=== PATIENT | male | born 1955 | race Caucasian/White ===

== ENCOUNTER 2020-07-31 16:12 | Inpatient (IN) ==
[2020-07-31] MEDS ORDERED: DOPamine 800 MG/250 ML PREMIX IV ONE (16:55)
[2020-07-31] MEDS ORDERED: methylPREDNISolone SOD SUC 125 MG/2 ML VIAL ONE (16:56)
[2020-07-31] MEDS ORDERED: DOPamine 800 MG/250 ML PREMIX IV SCH (17:00)
[2020-07-31] MEDS ORDERED: methylPREDNISolone SOD SUC 125 MG/2 ML VIAL IV STA (17:00)
[2020-07-31 17:06] LABS: Basophils # 0.1 10*3/uL (0.0-0.2); Basophils % 0.6 % (0.0-0.8); Eosinophils # 0.2 10*3/uL (0.0-0.87); Eosinophils % 1.8 % (0.00-10.9); Hematocrit 35.2 VOL% (42.0-52.0); Hemoglobin 10.8 GM/DL (14.0-18.0); Immature Granulocytes Absolute 0.18 #; Lymphocytes # 1.3 10*3/uL (1.4-4.0); Lymphocytes % 14.1 % (21.2-54.2); Mean Corpuscular HGB Conc 30.7 GM/DL (32-36); Mean Corpuscular Volume 108.6 FL (87-102); Mean Platelet Volume 10.6 FL (9.6-12.0); Monocytes % 6.5 % (1.7-12.7); Platelet Count 158 T/CUMM (130-400); Red Blood Count 3.24 MC/CUMM (3.8-5.5); White Blood Count 9.1 T/CUMM (4-12)
[2020-07-31 17:12] LABS: INR 1.2; PT Patient Result 12.7 SECS (9.8-11.9)
[2020-07-31 17:22] LABS: Albumin 2.8 G/DL (3.4-5.0); Bilirubin,Total 0.6 MG/DL (0.2-1.0); Calcium 7.7 MG/DL (8.5-10.1); Osmolality,Calculated 294.5 MOS/KG (273-304); Total Protein 6.3 G/DL (6.4-8.3)
[2020-07-31] MEDS: SODIUM CHLORIDE 0.9% 1,000 ML IV SCH ×3 (17:22→21:08)
[2020-07-31] MEDS ORDERED: SODIUM CHLORIDE 0.9% 500 ML IV STA (17:27)
[2020-07-31] MEDS ORDERED: LEVOFLOXACIN INJ 500 MG in PREMIX 1 EACH IV STA (18:04)
[2020-07-31] MEDS ORDERED: CEFEPIME 1,000 MG in SODIUM CHLORIDE 0.9% 100 ML IV STA (18:04)
[2020-07-31 18:57] LABS: Bilirubin,Urine Negative (Negative); Blood, Urine Negative (Negative); Glucose,Urine (UA) Negative (Negative); Hyaline Casts,Urine 4 /LPF (0-3); Ketones,Urine Negative (Negative); Mucus,Urine Occasional /LPF (Occasional); Nitrite,Urine Negative (Negative); Protein,Urine Negative; RBC,Urine 1 /HPF (0-4); Urine Appearance Slightly Hazy (Clear); Urine Color Yellow (Yellow); Urine Specific Gravity 1.013 (1.001-1.035); WBC,Urine <1 /HPF (0-6)
[2020-07-31] MEDS ORDERED: ACETAMINOPHEN 325 MG TABLET PO PRN (19:29)
[2020-07-31] MEDS ORDERED: GLUCAGON 1 MG VIAL IM PRN (19:36)
[2020-07-31] MEDS ORDERED: DEXTROSE 50% 25 GM/50 ML VIAL IV PRN (19:36)
[2020-07-31] MEDS ORDERED: PNEUMOCOCCAL VACCINE (13 VALENT) 0.5 ML SYRINGE IM ONE (20:48)
[2020-07-31] MEDS: LACTATED RINGERS 1,000 ML IV SCH (20:52)
[2020-07-31] MEDS: ALBUTEROL 2.5 MG/3 ML NEB RESP TX PRN (21:12)
[2020-07-31] MEDS: ENOXAPARIN 30 MG/0.3 ML SYRINGE SUBCUT SCH (21:15)
[2020-07-31] MEDS: INSULIN LISPRO 100 UNIT/ML SUBCUT SCH (21:15)
[2020-08-01 05:39] LABS: Basophils % 0.1 % (0.0-0.8); Hematocrit 37.2 VOL% (42.0-52.0); Hemoglobin 11.5 GM/DL (14.0-18.0); Immature Granulocytes % 1.2 %; Immature Granulocytes Absolute 0.12 #; Lymphocytes # 0.7 10*3/uL (1.4-4.0); Lymphocytes % 7.3 % (21.2-54.2); Mean Corpuscular HGB Conc 30.9 GM/DL (32-36); Mean Platelet Volume 10.3 FL (9.6-12.0); Monocytes % 3.7 % (1.7-12.7); Neutrophils % 87.7 % (38.7-73.9); Platelet Count 133 T/CUMM (130-400); Red Blood Count 3.61 MC/CUMM (3.8-5.5); Red Cell Distribution Width 13.8 % (9.3-17.3); White Blood Count 9.8 T/CUMM (4-12)
[2020-08-01 06:03] LABS: Calcium 8.1 MG/DL (8.5-10.1); Osmolality,Calculated 294.7 MOS/KG (273-304)
[2020-08-01] MEDS: ALBUTEROL 2.5 MG/3 ML NEB RESP TX PRN ×2 (06:33→10:25)
[2020-08-01] MEDS: LACTATED RINGERS 1,000 ML IV SCH (06:45)
[2020-08-01] MEDS: ROSUVASTATIN 20 MG TABLET PO SCH (08:32)
[2020-08-01] MEDS: BUDESONIDE/FORMOTEROL 160-4.5 INHALER 6 GM INH SCH (08:32)
[2020-08-01] MEDS: MONTELUKAST 10 MG TABLET PO SCH (08:32)
[2020-08-01] MEDS: INSULIN LISPRO 100 UNIT/ML SUBCUT SCH ×4 (08:32→23:00)
[2020-08-01] MEDS: ASPIRIN EC 81 MG TABLET PO SCH (08:32)
[2020-08-01] MEDS: PANTOPRAZOLE 40 MG TABLET PO SCH (08:32)
[2020-08-01] MEDS ORDERED: ALBUTEROL/IPRATROPIUM 3 ML NEB RESP TX ONE (10:14)
[2020-08-01] MEDS: SODIUM CHLORIDE 0.9% 1,000 ML IV SCH (10:25)
[2020-08-01] MEDS: ALBUTEROL/IPRATROPIUM 3 ML NEB RESP TX SCH ×4 (10:28→23:58)
[2020-08-01 12:26] LABS: Calcium 8.7 MG/DL (8.5-10.1); Osmolality,Calculated 291.8 MOS/KG (273-304)
[2020-08-01] MEDS: SODIUM POLYSTYRENE SULFATE 15 GM/60 ML BOTTLE PO SCH ×2 (13:24→19:59)
[2020-08-01 21:51] LABS: Calcium 8.2 MG/DL (8.5-10.1); Osmolality,Calculated 295.8 MOS/KG (273-304)
[2020-08-01] MEDS: ENOXAPARIN 30 MG/0.3 ML SYRINGE SUBCUT SCH (22:27)
[2020-08-01] MEDS: ACETAMINOPHEN/CODEINE 300-30 MG TABLET PO PRN (22:43)
[2020-08-02] MEDS: SODIUM CHLORIDE 0.9% 1,000 ML IV SCH ×4 (01:54→15:18)
[2020-08-02] MEDS: SODIUM POLYSTYRENE SULFATE 15 GM/60 ML BOTTLE PO SCH ×4 (02:00→20:22)
[2020-08-02] MEDS: ALBUTEROL/IPRATROPIUM 3 ML NEB RESP TX SCH ×6 (03:18→23:45)
[2020-08-02] MEDS: INSULIN LISPRO 100 UNIT/ML SUBCUT SCH ×4 (08:48→22:24)
[2020-08-02] MEDS: ROSUVASTATIN 20 MG TABLET PO SCH (09:49)
[2020-08-02] MEDS: MONTELUKAST 10 MG TABLET PO SCH (09:49)
[2020-08-02] MEDS: PANTOPRAZOLE 40 MG TABLET PO SCH (09:49)
[2020-08-02] MEDS: ASPIRIN EC 81 MG TABLET PO SCH (09:49)
[2020-08-02] MEDS: BUDESONIDE/FORMOTEROL 160-4.5 INHALER 6 GM INH SCH (09:49)
[2020-08-02 11:16] LABS: Calcium 7.9 MG/DL (8.5-10.1); Osmolality,Calculated 297.8 MOS/KG (273-304)
[2020-08-02] MEDS: PIPERACILLIN/TAZOBACTAM 3,375 MG in SODIUM CHLORIDE 0.9% 100 ML IV SCH ×2 (13:42→20:22)
[2020-08-02] MEDS: NICOTINE 21 MG/24 HR PATCH TRANSDERM SCH (15:09)
[2020-08-02] MEDS: DOCUSATE SODIUM 100 MG CAPSULE PO SCH ×2 (15:13→20:52)
[2020-08-02] MEDS: POLYETHYLENE GLYCOL POWDER 17 GM PACK PO SCH ×2 (15:17→20:52)
[2020-08-02] MEDS: ENOXAPARIN 30 MG/0.3 ML SYRINGE SUBCUT SCH (20:52)
[2020-08-03] MEDS: SODIUM POLYSTYRENE SULFATE 15 GM/60 ML BOTTLE PO SCH ×2 (01:19→06:10)
[2020-08-03] MEDS: PIPERACILLIN/TAZOBACTAM 3,375 MG in SODIUM CHLORIDE 0.9% 100 ML IV SCH ×3 (02:27→18:32)
[2020-08-03] MEDS: ALBUTEROL/IPRATROPIUM 3 ML NEB RESP TX SCH ×6 (02:45→23:50)
[2020-08-03 05:46] LABS: Basophils % 0.5 % (0.0-0.8); Eosinophils # 0.1 10*3/uL (0.0-0.87); Hematocrit 36.5 VOL% (42.0-52.0); Hemoglobin 11.4 GM/DL (14.0-18.0); Immature Granulocytes % 1.2 %; Immature Granulocytes Absolute 0.09 #; Lymphocytes # 0.9 10*3/uL (1.4-4.0); Mean Corpuscular HGB Conc 31.2 GM/DL (32-36); Mean Corpuscular Volume 103.1 FL (87-102); Mean Platelet Volume 10.8 FL (9.6-12.0); Monocytes % 8.8 % (1.7-12.7); Neutrophils % 77.5 % (38.7-73.9); Platelet Count 114 T/CUMM (130-400); Red Blood Count 3.54 MC/CUMM (3.8-5.5); Red Cell Distribution Width 14.2 % (9.3-17.3); White Blood Count 7.7 T/CUMM (4-12)
[2020-08-03 06:03] LABS: Calcium 8.1 MG/DL (8.5-10.1); Osmolality,Calculated 304.3 MOS/KG (273-304)
[2020-08-03] MEDS: ACETAMINOPHEN/CODEINE 300-30 MG TABLET PO PRN ×2 (07:53→22:11)
[2020-08-03] MEDS ORDERED: PNEUMOCOCCAL VACCINE (13 VALENT) 0.5 ML SYRINGE IM ONE (09:00)
[2020-08-03] MEDS: DOCUSATE SODIUM 100 MG CAPSULE PO SCH ×2 (09:16→21:22)
[2020-08-03] MEDS: PANTOPRAZOLE 40 MG TABLET PO SCH (09:16)
[2020-08-03] MEDS: POLYETHYLENE GLYCOL POWDER 17 GM PACK PO SCH ×3 (09:16→21:22)
[2020-08-03] MEDS: MONTELUKAST 10 MG TABLET PO SCH (09:17)
[2020-08-03] MEDS: NICOTINE 21 MG/24 HR PATCH TRANSDERM SCH (09:17)
[2020-08-03] MEDS: ASPIRIN EC 81 MG TABLET PO SCH (09:17)
[2020-08-03] MEDS: ROSUVASTATIN 20 MG TABLET PO SCH (09:17)
[2020-08-03] MEDS: INSULIN LISPRO 100 UNIT/ML SUBCUT SCH ×4 (09:22→21:22)
[2020-08-03] MEDS: BUDESONIDE/FORMOTEROL 160-4.5 INHALER 6 GM INH SCH (09:24)
[2020-08-03 09:39] LABS: % Iron Saturation 15.6 % (18-50)
[2020-08-03 10:21] LABS: Folate 7.5 NG/ML (5.4-24.0)
[2020-08-03] MEDS: FERROUS SULFATE 325 MG TABLET PO SCH ×2 (12:38→21:22)
[2020-08-03] MEDS: ENOXAPARIN 30 MG/0.3 ML SYRINGE SUBCUT SCH (21:22)
[2020-08-04] MEDS: SODIUM CHLORIDE 0.9% 1,000 ML IV SCH ×2 (01:07→15:06)
[2020-08-04] MEDS: ALBUTEROL/IPRATROPIUM 3 ML NEB RESP TX SCH ×5 (03:32→19:04)
[2020-08-04] MEDS: PIPERACILLIN/TAZOBACTAM 3,375 MG in SODIUM CHLORIDE 0.9% 100 ML IV SCH ×3 (03:40→18:12)
[2020-08-04 05:54] LABS: Basophils % 0.3 % (0.0-0.8); Eosinophils # 0.1 10*3/uL (0.0-0.87); Eosinophils % 1.1 % (0.00-10.9); Hematocrit 35.2 VOL% (42.0-52.0); Hemoglobin 11.2 GM/DL (14.0-18.0); Immature Granulocytes % 0.8 %; Immature Granulocytes Absolute 0.06 #; Lymphocytes # 0.8 10*3/uL (1.4-4.0); Mean Corpuscular HGB Conc 31.8 GM/DL (32-36); Mean Platelet Volume 10.7 FL (9.6-12.0); Monocytes % 6.9 % (1.7-12.7); Neutrophils % 80.9 % (38.7-73.9); Platelet Count 117 T/CUMM (130-400); Red Blood Count 3.45 MC/CUMM (3.8-5.5); Red Cell Distribution Width 14.1 % (9.3-17.3); White Blood Count 7.9 T/CUMM (4-12)
[2020-08-04 06:12] LABS: Calcium 8.6 MG/DL (8.5-10.1)
[2020-08-04] MEDS: INSULIN LISPRO 100 UNIT/ML SUBCUT SCH ×4 (08:00→21:17)
[2020-08-04] MEDS: NICOTINE 21 MG/24 HR PATCH TRANSDERM SCH (08:00)
[2020-08-04] MEDS: POLYETHYLENE GLYCOL POWDER 17 GM PACK PO SCH ×3 (08:01→21:17)
[2020-08-04] MEDS: ROSUVASTATIN 20 MG TABLET PO SCH (08:03)
[2020-08-04] MEDS: PANTOPRAZOLE 40 MG TABLET PO SCH (08:03)
[2020-08-04] MEDS: FERROUS SULFATE 325 MG TABLET PO SCH ×2 (08:03→21:17)
[2020-08-04] MEDS: ASPIRIN EC 81 MG TABLET PO SCH (08:03)
[2020-08-04] MEDS: DOCUSATE SODIUM 100 MG CAPSULE PO SCH ×2 (08:03→21:17)
[2020-08-04] MEDS: ACETAMINOPHEN/CODEINE 300-30 MG TABLET PO PRN (08:03)
[2020-08-04] MEDS: MONTELUKAST 10 MG TABLET PO SCH (08:03)
[2020-08-04] MEDS: BUDESONIDE/FORMOTEROL 160-4.5 INHALER 6 GM INH SCH (08:05)
[2020-08-04 12:32] LABS: Troponin I < 0.015 NG/ML (0.00-0.045)
[2020-08-04] MEDS ORDERED: guaiFENesin/DM ER 600-30 MG TABLET PO PRN (13:13)
[2020-08-04] MEDS: METOPROLOL SUCCINATE XL 25 MG TABLET PO SCH (13:23)
[2020-08-04] MEDS: LIDOCAINE 5% PATCH TRANSDERM SCH (13:23)
[2020-08-04] MEDS: LEVOFLOXACIN INJ 500 MG in PREMIX 1 EACH IV SCH (13:23)
[2020-08-04] MEDS: traMADol 50 MG TABLET PO SCH ×3 (13:23→21:17)
[2020-08-04] MEDS: DICLOFENAC 1% GEL 100 GM TUBE TOP SCH ×4 (13:24→21:16)
[2020-08-04] MEDS: ONDANSETRON 4 MG/2 ML VIAL IV PRN (16:58)
[2020-08-04] MEDS: ENOXAPARIN 30 MG/0.3 ML SYRINGE SUBCUT SCH (21:16)
[2020-08-05] MEDS: ALBUTEROL/IPRATROPIUM 3 ML NEB RESP TX SCH ×7 (00:34→23:36)
[2020-08-05] MEDS: PIPERACILLIN/TAZOBACTAM 3,375 MG in SODIUM CHLORIDE 0.9% 100 ML IV SCH ×3 (04:31→21:13)
[2020-08-05 06:04] LABS: Basophils % 0.5 % (0.0-0.8); Eosinophils # 0.1 10*3/uL (0.0-0.87); Eosinophils % 1.9 % (0.00-10.9); Hematocrit 36.6 VOL% (42.0-52.0); Hemoglobin 11.5 GM/DL (14.0-18.0); Immature Granulocytes % 0.8 %; Immature Granulocytes Absolute 0.06 #; Lymphocytes # 0.9 10*3/uL (1.4-4.0); Lymphocytes % 12.2 % (21.2-54.2); Mean Corpuscular HGB Conc 31.4 GM/DL (32-36); Mean Corpuscular Volume 102.5 FL (87-102); Mean Platelet Volume 10.5 FL (9.6-12.0); Monocytes % 7.7 % (1.7-12.7); Neutrophils % 76.9 % (38.7-73.9); Platelet Count 117 T/CUMM (130-400); Red Blood Count 3.57 MC/CUMM (3.8-5.5); Red Cell Distribution Width 13.9 % (9.3-17.3); White Blood Count 7.4 T/CUMM (4-12)
[2020-08-05 06:46] LABS: Osmolality,Calculated 299.8 MOS/KG (273-304)
[2020-08-05] MEDS: INSULIN LISPRO 100 UNIT/ML SUBCUT SCH ×4 (08:28→21:19)
[2020-08-05] MEDS: LIDOCAINE 5% PATCH TRANSDERM SCH (08:48)
[2020-08-05] MEDS: PANTOPRAZOLE 40 MG TABLET PO SCH (08:51)
[2020-08-05] MEDS: ONDANSETRON 4 MG/2 ML VIAL IV PRN (10:14)
[2020-08-05] MEDS: ASPIRIN EC 81 MG TABLET PO SCH (10:48)
[2020-08-05] MEDS: DOCUSATE SODIUM 100 MG CAPSULE PO SCH ×2 (10:48→21:11)
[2020-08-05] MEDS: POLYETHYLENE GLYCOL POWDER 17 GM PACK PO SCH ×3 (10:49→21:13)
[2020-08-05] MEDS: ROSUVASTATIN 20 MG TABLET PO SCH (10:49)
[2020-08-05] MEDS: MONTELUKAST 10 MG TABLET PO SCH (10:49)
[2020-08-05] MEDS: NICOTINE 21 MG/24 HR PATCH TRANSDERM SCH (10:49)
[2020-08-05] MEDS: FERROUS SULFATE 325 MG TABLET PO SCH ×2 (10:49→21:12)
[2020-08-05] MEDS: BUDESONIDE/FORMOTEROL 160-4.5 INHALER 6 GM INH SCH (10:50)
[2020-08-05] MEDS: METOPROLOL SUCCINATE XL 25 MG TABLET PO SCH (10:50)
[2020-08-05] MEDS: traMADol 50 MG TABLET PO SCH ×3 (10:50→21:12)
[2020-08-05] MEDS: DICLOFENAC 1% GEL 100 GM TUBE TOP SCH ×4 (10:50→21:18)
[2020-08-05] MEDS: SODIUM CHLORIDE 0.9% 1,000 ML IV SCH (12:48)
[2020-08-05] MEDS: ENOXAPARIN 30 MG/0.3 ML SYRINGE SUBCUT SCH (21:11)
[2020-08-06] MEDS: ALBUTEROL/IPRATROPIUM 3 ML NEB RESP TX SCH ×6 (00:08→19:57)
[2020-08-06] MEDS: PIPERACILLIN/TAZOBACTAM 3,375 MG in SODIUM CHLORIDE 0.9% 100 ML IV SCH ×3 (03:15→18:27)
[2020-08-06] MEDS: ONDANSETRON 4 MG/2 ML VIAL IV PRN (03:45)
[2020-08-06 05:39] LABS: Basophils % 0.6 % (0.0-0.8); Eosinophils # 0.2 10*3/uL (0.0-0.87); Eosinophils % 2.5 % (0.00-10.9); Hematocrit 36.5 VOL% (42.0-52.0); Hemoglobin 11.3 GM/DL (14.0-18.0); Immature Granulocytes % 0.7 %; Immature Granulocytes Absolute 0.05 #; Lymphocytes # 0.8 10*3/uL (1.4-4.0); Lymphocytes % 11.5 % (21.2-54.2); Mean Platelet Volume 10.5 FL (9.6-12.0); Neutrophils % 77.7 % (38.7-73.9); Platelet Count 114 T/CUMM (130-400); Red Blood Count 3.51 MC/CUMM (3.8-5.5); Red Cell Distribution Width 13.9 % (9.3-17.3); White Blood Count 6.9 T/CUMM (4-12)
[2020-08-06 07:50] LABS: Osmolality,Calculated 294.1 MOS/KG (273-304)
[2020-08-06] MEDS: INSULIN LISPRO 100 UNIT/ML SUBCUT SCH ×4 (08:08→20:59)
[2020-08-06] MEDS: POLYETHYLENE GLYCOL POWDER 17 GM PACK PO SCH ×3 (08:17→21:01)
[2020-08-06] MEDS: LIDOCAINE 5% PATCH TRANSDERM SCH (08:18)
[2020-08-06] MEDS: ROSUVASTATIN 20 MG TABLET PO SCH (08:19)
[2020-08-06] MEDS: DOCUSATE SODIUM 100 MG CAPSULE PO SCH ×2 (08:19→21:00)
[2020-08-06] MEDS: ASPIRIN EC 81 MG TABLET PO SCH (08:19)
[2020-08-06] MEDS: METOPROLOL SUCCINATE XL 25 MG TABLET PO SCH (08:19)
[2020-08-06] MEDS: MONTELUKAST 10 MG TABLET PO SCH (08:19)
[2020-08-06] MEDS: PANTOPRAZOLE 40 MG TABLET PO SCH (08:19)
[2020-08-06] MEDS: NICOTINE 21 MG/24 HR PATCH TRANSDERM SCH (08:19)
[2020-08-06] MEDS: traMADol 50 MG TABLET PO SCH ×3 (08:20→21:00)
[2020-08-06] MEDS: DICLOFENAC 1% GEL 100 GM TUBE TOP SCH ×4 (08:20→21:01)
[2020-08-06] MEDS: FERROUS SULFATE 325 MG TABLET PO SCH ×2 (08:20→21:00)
[2020-08-06] MEDS: BUDESONIDE/FORMOTEROL 160-4.5 INHALER 6 GM INH SCH (08:20)
[2020-08-06] MEDS: SODIUM CHLORIDE 0.9% 1,000 ML IV SCH (09:42)
[2020-08-06] MEDS: LEVOFLOXACIN INJ 500 MG in PREMIX 1 EACH IV SCH (10:41)
[2020-08-06] MEDS: DORNASE ALFA 2.5 MG/2.5 ML VIAL RESP TX SCH ×2 (11:00→19:57)
[2020-08-06] MEDS: ENOXAPARIN 30 MG/0.3 ML SYRINGE SUBCUT SCH (21:00)
[2020-08-06] MEDS: CYPROHEPTADINE 4 MG TABLET PO SCH (21:00)
[2020-08-07] MEDS: PIPERACILLIN/TAZOBACTAM 3,375 MG in SODIUM CHLORIDE 0.9% 100 ML IV SCH ×2 (03:05→12:01)
[2020-08-07] MEDS: ALBUTEROL/IPRATROPIUM 3 ML NEB RESP TX SCH ×3 (04:58→10:09)
[2020-08-07 06:33] LABS: Basophils % 0.6 % (0.0-0.8); Eosinophils # 0.2 10*3/uL (0.0-0.87); Eosinophils % 2.3 % (0.00-10.9); Hematocrit 37.2 VOL% (42.0-52.0); Hemoglobin 11.5 GM/DL (14.0-18.0); Immature Granulocytes % 0.6 %; Immature Granulocytes Absolute 0.04 #; Lymphocytes # 1.1 10*3/uL (1.4-4.0); Lymphocytes % 17.1 % (21.2-54.2); Mean Corpuscular HGB Conc 30.9 GM/DL (32-36); Mean Corpuscular Volume 103.9 FL (87-102); Mean Platelet Volume 10.5 FL (9.6-12.0); Monocytes % 8.7 % (1.7-12.7); Neutrophils % 70.7 % (38.7-73.9); Platelet Count 117 T/CUMM (130-400); Red Blood Count 3.58 MC/CUMM (3.8-5.5); Red Cell Distribution Width 13.6 % (9.3-17.3); White Blood Count 6.4 T/CUMM (4-12)
[2020-08-07 06:48] LABS: Calcium 8.9 MG/DL (8.5-10.1)
[2020-08-07] MEDS: DORNASE ALFA 2.5 MG/2.5 ML VIAL RESP TX SCH (07:10)
[2020-08-07] MEDS: INSULIN LISPRO 100 UNIT/ML SUBCUT SCH ×2 (07:52→12:06)
[2020-08-07] MEDS: SODIUM CHLORIDE 0.9% 1,000 ML IV SCH (08:42)
[2020-08-07] MEDS ORDERED: METOPROLOL SUCCINATE XL 25 MG TABLET PO SCH (09:00)
[2020-08-07] MEDS: NICOTINE 21 MG/24 HR PATCH TRANSDERM SCH (09:42)
[2020-08-07] MEDS: POLYETHYLENE GLYCOL POWDER 17 GM PACK PO SCH (09:42)
[2020-08-07] MEDS: LIDOCAINE 5% PATCH TRANSDERM SCH (09:42)
[2020-08-07] MEDS: ASPIRIN EC 81 MG TABLET PO SCH (09:43)
[2020-08-07] MEDS: ROSUVASTATIN 20 MG TABLET PO SCH (09:43)
[2020-08-07] MEDS: DOCUSATE SODIUM 100 MG CAPSULE PO SCH (09:44)
[2020-08-07] MEDS: traMADol 50 MG TABLET PO SCH (09:44)
[2020-08-07] MEDS: CYPROHEPTADINE 4 MG TABLET PO SCH (09:45)
[2020-08-07] MEDS: PANTOPRAZOLE 40 MG TABLET PO SCH (09:45)
[2020-08-07] MEDS: MONTELUKAST 10 MG TABLET PO SCH (09:45)
[2020-08-07] MEDS: BUDESONIDE/FORMOTEROL 160-4.5 INHALER 6 GM INH SCH (09:48)
[2020-08-07] MEDS: DICLOFENAC 1% GEL 100 GM TUBE TOP SCH ×2 (09:48→14:02)
[2020-08-07] MEDS: FERROUS SULFATE 325 MG TABLET PO SCH (09:50)
[2020-08-07] MEDS ORDERED: FERROUS SULFATE 325 MG TABLET PO SCH (10:00)
[2020-08-07 12:27] VITALS: BP 105/79
[2020-08-07] MEDS ORDERED: DOXYCYCLINE HYCLATE 100 MG CAPSULE PO SCH (21:00)
== END 2020-08-07 14:33 | disposition swing bed (61) | DRG 917 ==
LOC: EDUNIT# → EDBD → N.ED 16:12 → SUATTDRO 18:09 → N.EDINP 18:09 → N.ICU 19:38 → N.TELES 08-01 14:47
PROVIDERS: ADMIT Phlebology; ATTEND Hospitalist

== ENCOUNTER 2021-08-17 08:44 | Inpatient (IN) ==
[2021-08-17] MEDS ORDERED: SODIUM CHLORIDE 0.9% 500 ML IV STA (10:20)
[2021-08-17] MEDS ORDERED: NALOXONE 0.4 MG/ML VIAL IV STA (10:20)
[2021-08-17] MEDS ORDERED: THIAMINE 200 MG/2 ML VIAL IV STA (10:20)
[2021-08-17 11:04] LABS: Alanine Aminotransferase 21 U/L (16-61); Albumin 3.4 G/DL (3.4-5.0); Alkaline Phosphatase 128 U/L (45-117); Aspartate Amino Transferase 21 U/L (0-37); Blood Urea Nitrogen 26 MG/DL (7-18); Calcium 8.9 MG/DL (8.5-10.1); Carbon Dioxide 31 MMOL/L (21-32); Estimated Glom Filtration Rate 86 ML/MIN; Glucose 169 MG/DL (74-106); Osmolality,Calculated 287.4 MOS/KG (273-304); Potassium 3.6 MMOL/L (3.5-5.1); Sodium 140 MMOL/L (136-145); Total Protein 7.1 G/DL (6.4-8.2)
[2021-08-17 11:16] LABS: Basophils % 0.4 % (0.0-0.8); Eosinophils # 0.2 10*3/uL (0.0-0.87); Eosinophils % 1.9 % (0.00-10.9); Hematocrit 39.7 VOL% (42.0-52.0); Hemoglobin 12.5 GM/DL (14.0-18.0); Immature Granulocytes % 0.6 %; Immature Granulocytes Absolute 0.05 #; Lymphocytes # 1.1 10*3/uL (1.4-4.0); Lymphocytes % 13.4 % (21.2-54.2); Mean Corpuscular HGB Conc 31.5 GM/DL (32-36); Mean Corpuscular Volume 99.5 FL (87-102); Mean Platelet Volume 9.9 FL (9.6-12.0); Monocytes % 6.2 % (1.7-12.7); Neutrophils % 77.5 % (38.7-73.9); Platelet Count 157 T/CUMM (130-400); Red Blood Count 3.99 MC/CUMM (3.8-5.5); Red Cell Distribution Width 13.5 % (9.3-17.3); White Blood Count 7.9 T/CUMM (4-12)
[2021-08-17] MEDS ORDERED: PIPERACILLIN/TAZOBACTAM 3,375 MG in SODIUM CHLORIDE 0.9% 100 ML IV STA (11:19)
[2021-08-17 12:20] LABS: Anisocytosis Slight; Macrocytosis Slight; Platelet Estimate Normal
[2021-08-17] MEDS ORDERED: ONDANSETRON 4 MG/2 ML VIAL IV PRN (12:24)
[2021-08-17] MEDS ORDERED: GLUCAGON 1 MG VIAL IM PRN (12:24)
[2021-08-17] MEDS ORDERED: DEXTROSE 50% 25 GM/50 ML VIAL IV PRN (12:24)
[2021-08-17] MEDS ORDERED: ALBUTEROL 2.5 MG/3 ML NEB RESP TX PRN (12:30)
[2021-08-17 12:35] LABS: Bilirubin,Urine Negative (Negative); Blood, Urine Small mg/dL (Negative); Glucose,Urine (UA) Negative (Negative); Hyaline Casts,Urine 16 /LPF (0-3); Ketones,Urine Negative (Negative); Mucus,Urine Occasional /LPF (Occasional); Nitrite,Urine Negative (Negative); Protein,Urine Negative; RBC,Urine 5 /HPF (0-4); Squamous Epithelial Cell,Urine Occasional /HPF (0-10); Urine Appearance CLEAR (Clear); Urine Color Yellow (Yellow); Urine Specific Gravity 1.009 (1.001-1.035); Urine Urobilinogen < 2.0 EU/DL (0.2-1.0)
[2021-08-17 12:44] LABS: Barbiturates Screen,Urine Negative (Negative); Benzodiazepines Screen,Urine Negative (Negative); Cannabinoid Screen,Urine Negative (Negative); Opiate Screen,Urine Positive (Negative); Phencyclidine Screen,Urine Negative (Negative)
[2021-08-17 13:07] LABS: ABG Base Excess 2.9 MMOL/L (-2.5-2.5); ABG PCO2 51.6 MM HG (35-48); ABG PH 7.364 (7.35-7.45); ABG TCO2 25.8 MMOL/L (23-27)
[2021-08-17] MEDS: ALBUTEROL/IPRATROPIUM 3 ML NEB RESP TX SCH ×3 (15:10→23:52)
[2021-08-17] MEDS: ENOXAPARIN 40 MG/0.4 ML SYRINGE SUBCUT SCH (15:56)
[2021-08-17] MEDS: INSULIN LISPRO 100 UNIT/ML SUBCUT SCH ×2 (15:56→21:51)
[2021-08-18] MEDS: ALBUTEROL/IPRATROPIUM 3 ML NEB RESP TX SCH ×6 (03:45→23:41)
[2021-08-18 05:52] LABS: Basophils % 0.3 % (0.0-0.8); Eosinophils # 0.1 10*3/uL (0.0-0.87); Eosinophils % 0.7 % (0.00-10.9); Hematocrit 42.9 VOL% (42.0-52.0); Hemoglobin 13.5 GM/DL (14.0-18.0); Immature Granulocytes % 0.6 %; Immature Granulocytes Absolute 0.07 #; Lymphocytes % 8.5 % (21.2-54.2); Mean Corpuscular HGB Conc 31.5 GM/DL (32-36); Mean Corpuscular Volume 100.2 FL (87-102); Mean Platelet Volume 9.9 FL (9.6-12.0); Monocytes % 6.9 % (1.7-12.7); Platelet Count 170 T/CUMM (130-400); Red Blood Count 4.28 MC/CUMM (3.8-5.5); Red Cell Distribution Width 13.3 % (9.3-17.3); White Blood Count 12.2 T/CUMM (4-12)
[2021-08-18 07:10] LABS: Calcium 9.1 MG/DL (8.5-10.1); Osmolality,Calculated 287.3 MOS/KG (273-304); Potassium 3.5 MMOL/L (3.5-5.1)
[2021-08-18] MEDS: INSULIN LISPRO 100 UNIT/ML SUBCUT SCH ×4 (08:02→21:49)
[2021-08-18] MEDS: PANTOPRAZOLE 40 MG VIAL IV SCH (11:08)
[2021-08-18] MEDS: ENOXAPARIN 40 MG/0.4 ML SYRINGE SUBCUT SCH ×2 (11:09→11:30)
[2021-08-19] MEDS: ALBUTEROL/IPRATROPIUM 3 ML NEB RESP TX SCH ×4 (03:40→19:30)
[2021-08-19] MEDS: TAMSULOSIN 0.4 MG CAPSULE PO SCH (09:30)
[2021-08-19] MEDS: PANTOPRAZOLE 40 MG VIAL IV SCH (09:33)
[2021-08-19] MEDS: INSULIN LISPRO 100 UNIT/ML SUBCUT SCH ×4 (09:33→20:50)
[2021-08-19 09:42] LABS: Calcium 9.3 MG/DL (8.5-10.1); Osmolality,Calculated 297.7 MOS/KG (273-304); Potassium 3.7 MMOL/L (3.5-5.1)
[2021-08-19] MEDS: ENOXAPARIN 40 MG/0.4 ML SYRINGE SUBCUT SCH (13:34)
[2021-08-20] MEDS: ALBUTEROL/IPRATROPIUM 3 ML NEB RESP TX SCH ×4 (00:15→11:00)
[2021-08-20 05:05] LABS: Basophils % 0.3 % (0.0-0.8); Eosinophils # 0.2 10*3/uL (0.0-0.87); Eosinophils % 1.4 % (0.00-10.9); Hematocrit 37.4 VOL% (42.0-52.0); Hemoglobin 11.9 GM/DL (14.0-18.0); Immature Granulocytes % 0.8 %; Immature Granulocytes Absolute 0.09 #; Lymphocytes # 1.2 10*3/uL (1.4-4.0); Lymphocytes % 10.3 % (21.2-54.2); Mean Corpuscular HGB Conc 31.8 GM/DL (32-36); Mean Corpuscular Volume 99.5 FL (87-102); Mean Platelet Volume 9.9 FL (9.6-12.0); Monocytes % 6.8 % (1.7-12.7); Neutrophils % 80.4 % (38.7-73.9); Red Blood Count 3.76 MC/CUMM (3.8-5.5); Red Cell Distribution Width 13.7 % (9.3-17.3); White Blood Count 11.8 T/CUMM (4-12)
[2021-08-20 05:08] LABS: Platelet Count 121 T/CUMM (130-400)
[2021-08-20 05:34] LABS: Hypochromasia Slight; Microcytosis Slight
[2021-08-20 05:38] LABS: Calcium 8.7 MG/DL (8.5-10.1); Osmolality,Calculated 284.7 MOS/KG (273-304); Potassium 3.5 MMOL/L (3.5-5.1)
[2021-08-20] MEDS: TAMSULOSIN 0.4 MG CAPSULE PO SCH (08:32)
[2021-08-20] MEDS: PANTOPRAZOLE 40 MG VIAL IV SCH (08:32)
[2021-08-20] MEDS: INSULIN LISPRO 100 UNIT/ML SUBCUT SCH (08:33)
[2021-08-20 12:20] VITALS: BP 101/55
== END 2021-08-20 12:56 | disposition home or self-care (01) | DRG 948 ==
LOC: EDBD → EDUNIT# → N.ED 08:44 → N.EDINP 12:22 → N.3E 13:33
PROVIDERS: ADMIT Internal Medicine Geriatric Medicine; ATTEND Internal Medicine Geriatric Medicine